=== PATIENT | female | born 1970 | race Two or more races ===

== ENCOUNTER 2018-05-05 10:34 | Outpatient (CLI) | payer OTHER | END 2018-05-05 10:55 | disposition home or self-care (01) | LOC: RAD 501 10:34 | DX: M17.0 Bilateral primary osteoarthritis of knee (principal) ==

== ENCOUNTER 2019-03-22 12:08 | Outpatient (CLI) | payer OTHER | END 2019-03-22 12:13 | disposition home or self-care (01) | LOC: RAD 12:08 | DX: M17.11 Unilateral primary osteoarthritis, right knee (principal); M25.561 Pain in right knee ==